=== PATIENT | female | born 1955 | race Caucasian/White ===

== ENCOUNTER 2016-12-29 12:35 | Emergency (ER) | payer MEDICAID ==
[~2016-12-29] VITALS: Ht 154.9 cm; Wt 51.1 kg
[2016-12-29 12:39] VITALS: BP 133/81
[2016-12-29] MEDS ORDERED: OXYcodone/APAP 5/325MG TABLET ONE (13:06)
[2016-12-29] MEDS ORDERED: OXYcodone/APAP 5/325MG TABLET PO ONE (13:30)
== END 2016-12-29 14:52 | disposition home or self-care (01) ==
LOC: ED 14:45
DX: S52.502A Unspecified fracture of the lower end of left radius, initial encounter for closed fracture (principal); X50.9XXA Other and unspecified overexertion or strenuous movements or postures, initial encounter; Y93.89 Activity, other specified; Y99.8 Other external cause status; Y92.830 Public park as the place of occurrence of the external cause
CPT/HCPCS: 29125

== ENCOUNTER 2017-01-03 20:16 | Emergency (ER) | payer MEDICAID ==
[~2017-01-03] VITALS: Ht 157.5 cm; Wt 51.3 kg
[2017-01-03 20:18] VITALS: BP 125/84
[2017-01-03] MEDS ORDERED: LIDOCAINE 1%, 20ML ONE (21:32)
[2017-01-03] MEDS ORDERED: LIDOCAINE 1%, 20ML INFIL ONE (22:00)
[2017-01-03] MEDS ORDERED: BACITRACIN ZINC OINT 500U/GM, 0.9 GM ONE (22:50)
[2017-01-03] MEDS ORDERED: TRAM50TA2 PO (22:55)
[2017-01-03] MEDS ORDERED: ACET500T63 PO (22:55)
[2017-01-03] MEDS ORDERED: NITR100C PO (22:55)
== END 2017-01-03 23:04 | disposition home or self-care (01) ==
LOC: ED 22:58
DX: S01.511A Laceration without foreign body of lip, initial encounter (principal); W01.0XXA Fall on same level from slipping, tripping and stumbling without subsequent striking against object, initial encounter; Y93.89 Activity, other specified; Y92.89 Other specified places as the place of occurrence of the external cause; Y99.8 Other external cause status
CPT/HCPCS: 13152; 70450; 70486; 99285; J3490

== ENCOUNTER 2017-08-22 05:52 | Emergency (ER) | payer SELFPAY ==
[~2017-08-22] VITALS: Ht 160 cm; Wt 47.7 kg
[~2017-08-22 05:52] MED LIST: ACET500T63 PO; NITR100C PO; TRAM50TA2 PO
[2017-08-22] MEDS ORDERED: LIDOCAINE 1%, 20ML ONE (07:34)
[2017-08-22] MEDS ORDERED: ACETAMINOPHEN 500 MG TABLET ONE (07:37)
[2017-08-22] MEDS ORDERED: ACETAMINOPHEN 500 MG TABLET PO ONE (08:30)
[2017-08-22 11:08] VITALS: BP 124/83
== END 2017-08-22 11:55 | disposition home or self-care (01) ==
LOC: ED 11:27
DX: S01.01XA Laceration without foreign body of scalp, initial encounter (principal); F10.20 Alcohol dependence, uncomplicated; F17.200 Nicotine dependence, unspecified, uncomplicated; I10 Essential (primary) hypertension; W18.30XA Fall on same level, unspecified, initial encounter; Y93.89 Activity, other specified; Y92.89 Other specified places as the place of occurrence of the external cause; Y99.8 Other external cause status
CPT/HCPCS: 13121; 70450; 72125; 99285

== ENCOUNTER 2017-09-01 18:06 | Emergency (ER) | payer OTHER ==
[~2017-09-01] VITALS: Ht 162.6 cm; Wt 65.0 kg
[2017-09-01] MEDS ORDERED: SODIUM CHLORIDE 0.9% 1,000ML IVBOLUS ONE ×2 (19:00→22:00)
[2017-09-01 19:05] LABS: BASOPHILS # (AUTO) 0.07 x10^3/uL (0-0.1); BASOPHILS % (AUTO) 1 % (0-1); EOSINOPHILS # (AUTO) 0.23 x10^3/uL (0-0.4); EOSINOPHILS % (AUTO) 2 % (1-7); LYMPHOCYTES # (AUTO) 3.22 x10^3/uL (1-3.4); LYMPHOCYTES % (AUTO) 23 % (22-44); MD NO; MEAN CORPUSCULAR HEMOGLOBIN 32.9 pg (27.0-34.8); MEAN CORPUSCULAR HGB CONC 32.6 g/dL (32.4-35.8); MEAN CORPUSCULAR VOLUME 100.9 fL (80-100); MEAN PLATELET VOLUME 7.1 fL (7.4-10.4); MONOCYTES # (AUTO) 0.92 x10^3/uL (0.2-0.8); MONOCYTES % (AUTO) 7 % (2-9); NEUTROPHILS # (AUTO) 9.38 x10^3/uL (1.8-6.8); NEUTROPHILS % (AUTO) 68 % (42-75); PLATELET COUNT 430 x10^3/uL (130-400); RED BLOOD COUNT 3.74 x10^6/uL (3.82-5.3); RED CELL DISTRIBUTION WIDTH 15.1 % (9.6-15.2)
[2017-09-01 19:13] LABS: ALANINE AMINOTRANSFERASE 155 U/L (12-78); ALBUMIN 3.1 g/dL (3.4-5.0); ANION GAP 8 mmol/L (5-15); CALCIUM 7.8 mg/dL (8.5-10.1); CHLORIDE 110 mmol/L (98-107); CREATININE 0.42 mg/dL (0.55-1.02)
[2017-09-01 19:17] LABS: ALKALINE PHOSPHATASE 104 U/L (45-117); BILIRUBIN,TOTAL 0.3 mg/dL (0.2-1.0); TOTAL PROTEIN 7.3 g/dL (6.4-8.2)
[2017-09-01 22:24] VITALS: BP 112/60
== END 2017-09-02 00:03 | disposition home or self-care (01) ==
LOC: ED 23:19
DX: F10.220 Alcohol dependence with intoxication, uncomplicated (principal); E86.0 Dehydration
CPT/HCPCS: 36415; 80053; 80307; 85025; 96360; 96361; 99284; J7030

== ENCOUNTER 2018-03-29 18:25 | Emergency (ER) | payer MEDICAID ==
[~2018-03-29] VITALS: Ht 157.5 cm; Wt 50.0 kg
[~2018-03-29 18:25] MED LIST changes: +ACET325T14 PO; +CEFD300C37 PO; +FOLI-17 PO; +GUAI200T3 PO; +HYDR-3240 PO; +LISI5TAB7 PO; +THIA100T67 PO
[2018-03-29 18:29] VITALS: BP 150/96
[2018-03-29] MEDS ORDERED: DIPH,PERTUSS(ACELL),TET VAC/PF 0.5 ML IM-VACC ONE ×2 (18:52→19:00)
[2018-03-29] MEDS ORDERED: LIDOCAINE-MPF 2%, 2ML ONE (18:52)
[2018-03-29] MEDS ORDERED: LIDOCAINE-MPF 1%, 5ML INFIL ONE (19:00)
[2018-03-29] MEDS ORDERED: BACITRACIN ZINC OINT 500U/GM, 0.9 GM ONE (21:01)
[2018-03-29] MEDS ORDERED: IBUPROFEN 200 MG TABLET ONE (21:11)
[2018-03-29] MEDS ORDERED: IBUPROFEN 200 MG TABLET PO ONE (21:30)
== END 2018-03-29 21:26 | disposition home or self-care (01) ==
LOC: ED 21:11
DX: S06.0X0A Concussion without loss of consciousness, initial encounter (principal); S01.112A Laceration without foreign body of left eyelid and periocular area, initial encounter; F10.10 Alcohol abuse, uncomplicated; I10 Essential (primary) hypertension; F17.200 Nicotine dependence, unspecified, uncomplicated; X58.XXXA Exposure to other specified factors, initial encounter; Y93.89 Activity, other specified; Y99.8 Other external cause status; Y92.009 Unspecified place in unspecified non-institutional (private) residence as the place of occurrence of the external cause
CPT/HCPCS: 12051; 70450; 72125; 90471; 90715

== ENCOUNTER 2018-04-08 08:37 | Emergency (ER) | payer MEDICAID ==
[~2018-04-08] VITALS: Ht 157.5 cm; Wt 51.7 kg
[2018-04-08 09:10] VITALS: BP 166/95
== END 2018-04-08 09:12 | disposition home or self-care (01) ==
LOC: ED 09:07
DX: S01.112D Laceration without foreign body of left eyelid and periocular area, subsequent encounter (principal); I10 Essential (primary) hypertension; F17.200 Nicotine dependence, unspecified, uncomplicated; X58.XXXD Exposure to other specified factors, subsequent encounter
CPT/HCPCS: 99282

== ENCOUNTER 2018-09-06 15:09 | Emergency (ER) | payer MEDICAID ==
[~2018-09-06] VITALS: Ht 157.5 cm; Wt 50.7 kg
[2018-09-06 15:44] LABS: BASOPHILS # (AUTO) 0.07 x10^3/uL (0-0.1); BASOPHILS % (AUTO) 1 % (0-1); EOSINOPHILS # (AUTO) 0.32 x10^3/uL (0-0.4); EOSINOPHILS % (AUTO) 3 % (1-7); LYMPHOCYTES # (AUTO) 2.45 x10^3/uL (1-3.4); LYMPHOCYTES % (AUTO) 24 % (22-44); MD NO; MEAN CORPUSCULAR HEMOGLOBIN 29.8 pg (27.0-34.8); MEAN CORPUSCULAR VOLUME 90.3 fL (80-100); MEAN PLATELET VOLUME 7.7 fL (7.4-10.4); MONOCYTES # (AUTO) 1.08 x10^3/uL (0.2-0.8); MONOCYTES % (AUTO) 11 % (2-9); NEUTROPHILS # (AUTO) 6.25 x10^3/uL (1.8-6.8); NEUTROPHILS % (AUTO) 62 % (42-75); PLATELET COUNT 361 x10^3/uL (130-400); RED BLOOD COUNT 4.33 x10^6/uL (3.82-5.3); RED CELL DISTRIBUTION WIDTH 14.7 % (9.6-15.2)
[2018-09-06 15:53] LABS: ANION GAP 6 mmol/L (5-15); CHLORIDE 105 mmol/L (98-107)
--- NOTE | 2018-09-06 18:52 | NUR ---
TO ROOM FROM [facility]. NAD.
[2018-09-06 19:17] VITALS: BP 153/84
[2018-09-06 19:30] LABS: MICROSCOPIC AUTO
[2018-09-06 19:32] LABS: CULTURE INDICATED? YES
[2018-09-06 19:41] LABS: RAPID INFLUENZA A Negative (Negative); RAPID INFLUENZA B Negative (Negative)
== END 2018-09-06 19:53 | disposition home or self-care (01) ==
LOC: ED 19:15
DX: J06.9 Acute upper respiratory infection, unspecified (principal); F17.200 Nicotine dependence, unspecified, uncomplicated; I10 Essential (primary) hypertension
CPT/HCPCS: 36415; 71046; 80048; 81001; 85025; 87086; 87400; 93005; 99284

== ENCOUNTER 2018-10-01 01:00 | Emergency (ER) | payer MEDICAID ==
[~2018-10-01] VITALS: Ht 154.9 cm; Wt 50.0 kg
[2018-10-01 01:58] VITALS: BP 143/104
== END 2018-10-01 02:23 | disposition home or self-care (01) ==
LOC: ED 01:21
DX: J44.1 Chronic obstructive pulmonary disease with (acute) exacerbation (principal); I10 Essential (primary) hypertension; F17.200 Nicotine dependence, unspecified, uncomplicated
CPT/HCPCS: 71046; 99283

== ENCOUNTER 2018-11-03 16:55 | Emergency (ER) | payer MEDICAID ==
[~2018-11-03] VITALS: Ht 157.5 cm; Wt 49.0 kg
[2018-11-03 16:57] VITALS: BP 154/78
[2018-11-03] MEDS ORDERED: IBUPROFEN 200 MG TABLET ONE (17:25)
[2018-11-03] MEDS ORDERED: IBUPROFEN 600 MG TABLET PO ONE (18:00)
== END 2018-11-03 18:36 | disposition home or self-care (01) ==
LOC: ED 18:15
DX: M43.16 Spondylolisthesis, lumbar region (principal); M54.16 Radiculopathy, lumbar region; M54.41 Lumbago with sciatica, right side; I10 Essential (primary) hypertension; J44.9 Chronic obstructive pulmonary disease, unspecified; Z72.9 Problem related to lifestyle, unspecified
CPT/HCPCS: 72110; 99283

== ENCOUNTER 2019-03-02 10:32 | Emergency (ER) | payer MEDICAID ==
[~2019-03-02] VITALS: Ht 157.5 cm; Wt 51.1 kg
[2019-03-02 12:44] VITALS: BP 124/78
== END 2019-03-02 13:13 | disposition home or self-care (01) ==
LOC: ED 11:05
DX: I10 Essential (primary) hypertension (principal); J44.9 Chronic obstructive pulmonary disease, unspecified; M19.90 Unspecified osteoarthritis, unspecified site
CPT/HCPCS: 36415; 71045; 80053; 83880; 84484; 85025; 93005; 99284

== ENCOUNTER 2019-07-24 10:24 | Emergency (ER) | payer MEDICARE, MEDICAID ==
[~2019-07-24] VITALS: Ht 157.5 cm; Wt 53.8 kg
[~2019-07-24 10:24] MED LIST changes: -GUAI200T3 PO; +GUAI200T37 PO
[2019-07-24 10:42] VITALS: BP 164/86
--- NOTE | 2019-07-24 10:57 | NUR ---
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
--- NOTE | 2019-07-24 11:27 | NUR ---
PT IN ROOM 16 FROM [facility]
--- NOTE | 2019-07-24 11:50 | NUR ---
PT RETURNED FROM XRAY, AMBULATED TO BATHROOM WITH STEADY GAIT
== END 2019-07-24 13:01 | disposition home or self-care (01) ==
LOC: ED 11:36
DX: J15.9 Unspecified bacterial pneumonia (principal); I10 Essential (primary) hypertension; J44.9 Chronic obstructive pulmonary disease, unspecified; F17.200 Nicotine dependence, unspecified, uncomplicated
CPT/HCPCS: 71046; 93005; 99283

== ENCOUNTER 2019-09-11 19:44 | Emergency (ER) | payer MEDICARE, MEDICAID ==
[~2019-09-11] VITALS: Ht 157.5 cm; Wt 52.0 kg
--- NOTE | 2019-09-11 19:48 | NUR ---
Pt ambulated to restroom with assistance, was persistent to be in the restroom alone. When nurse stepped outside, pt leaned forward, lost balance and hit her head on the trash can. No LOC. Small laceration on left forehead, bleeding controlled at this time. MD aware, will continue to monitor
--- NOTE | 2019-09-11 20:50 | NUR ---
pt returned from ct
[2019-09-11] MEDS ORDERED: ACETAMINOPHEN 500 MG TABLET PO ONE (22:00)
[2019-09-11] MEDS ORDERED: ACETAMINOPHEN 500 MG TABLET ONE (22:02)
[2019-09-12 00:33] VITALS: BP 110/64
--- NOTE | 2019-09-12 00:42 | NUR ---
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
== END 2019-09-12 01:49 | disposition home or self-care (01) ==
LOC: ED 09-12 00:23
DX: S00.03XA Contusion of scalp, initial encounter (principal); F10.120 Alcohol abuse with intoxication, uncomplicated; I10 Essential (primary) hypertension; J44.9 Chronic obstructive pulmonary disease, unspecified; M19.90 Unspecified osteoarthritis, unspecified site; F17.200 Nicotine dependence, unspecified, uncomplicated; W01.198A Fall on same level from slipping, tripping and stumbling with subsequent striking against other object, initial encounter; Y93.89 Activity, other specified; Y92.488 Other paved roadways as the place of occurrence of the external cause; Y99.8 Other external cause status; Y90.9 Presence of alcohol in blood, level not specified
CPT/HCPCS: 70450; 72125; 99285

== ENCOUNTER 2019-09-29 11:07 | Emergency (ER) | payer MEDICARE, MEDICAID ==
[~2019-09-29] VITALS: Ht 154.9 cm; Wt 55.0 kg
[2019-09-29 11:09] VITALS: BP 144/81
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
[2019-09-29] MEDS ORDERED: LIDOCAINE-MPF 1%, 5ML ONE (11:30)
[2019-09-29] MEDS ORDERED: LIDOCAINE-MPF 1%, 5ML INFIL ONE (11:30)
--- NOTE | 2019-09-29 14:23 | NUR ---
given meal tray read for dc
--- NOTE | 2019-09-29 14:29 | NUR ---
Patient/Caregiver given discharge instructions and they have confirmed that they understand the instructions. Patient ambulatory with steady gait.
== END 2019-09-29 14:55 | disposition home or self-care (01) ==
LOC: ED 12:02
DX: S01.511A Laceration without foreign body of lip, initial encounter (principal); F10.229 Alcohol dependence with intoxication, unspecified; J44.9 Chronic obstructive pulmonary disease, unspecified; I10 Essential (primary) hypertension; Y90.9 Presence of alcohol in blood, level not specified; W01.0XXA Fall on same level from slipping, tripping and stumbling without subsequent striking against object, initial encounter; Y93.89 Activity, other specified; Y92.89 Other specified places as the place of occurrence of the external cause; Y99.8 Other external cause status
CPT/HCPCS: 40650; 99284

== ENCOUNTER → 2020-12-26 | Outpatient (CLI) | payer MEDICARE, MEDICAID ==
[~2020-12-26] MED LIST changes: -FOLI-17 PO; +FOLI1TAB32 PO; +HYDR-2214 PO; -HYDR-3240 PO
== END | disposition home or self-care (01) ==
LOC: WOUND 09:32
PROVIDERS: ATTEND Internal Medicine
DX: T84.296A Other mechanical complication of internal fixation device of vertebrae, initial encounter (principal); S01.80XA Unspecified open wound of other part of head, initial encounter; R29.6 Repeated falls; I10 Essential (primary) hypertension; E78.5 Hyperlipidemia, unspecified; J44.9 Chronic obstructive pulmonary disease, unspecified; M19.90 Unspecified osteoarthritis, unspecified site; F17.210 Nicotine dependence, cigarettes, uncomplicated; F10.20 Alcohol dependence, uncomplicated; F32.9 Major depressive disorder, single episode, unspecified; F41.9 Anxiety disorder, unspecified; Z79.899 Other long term (current) drug therapy; Z87.01 Personal history of pneumonia (recurrent); W00.0XXA Fall on same level due to ice and snow, initial encounter; Y93.89 Activity, other specified; Y92.238 Other place in hospital as the place of occurrence of the external cause; Y99.8 Other external cause status; Y83.1 Surgical operation with implant of artificial internal device as the cause of abnormal reaction of the patient, or of later complication, without mention of misadventure at the time of the procedure
CPT/HCPCS: 97597; G0463

== ENCOUNTER → 2021-01-02 | Outpatient (CLI) | payer MEDICARE, MEDICAID | END | disposition home or self-care (01) | LOC: WOUND 10:37 | PROVIDERS: ATTEND Internal Medicine | DX: T84.296D Other mechanical complication of internal fixation device of vertebrae, subsequent encounter (principal); S01.80XD Unspecified open wound of other part of head, subsequent encounter; R29.6 Repeated falls; I10 Essential (primary) hypertension; E78.5 Hyperlipidemia, unspecified; M19.90 Unspecified osteoarthritis, unspecified site; J44.9 Chronic obstructive pulmonary disease, unspecified; F32.9 Major depressive disorder, single episode, unspecified; F17.210 Nicotine dependence, cigarettes, uncomplicated; F10.20 Alcohol dependence, uncomplicated; Z87.01 Personal history of pneumonia (recurrent); Y83.1 Surgical operation with implant of artificial internal device as the cause of abnormal reaction of the patient, or of later complication, without mention of misadventure at the time of the procedure; X58.XXXD Exposure to other specified factors, subsequent encounter | CPT/HCPCS: 97597 ==

== ENCOUNTER 2021-01-09 10:00 | Outpatient (CLI) | payer MEDICARE, MEDICAID | END 2021-01-09 23:59 | disposition home or self-care (01) | LOC: WOUND 10:00 | PROVIDERS: ATTEND Internal Medicine | DX: T84.296D Other mechanical complication of internal fixation device of vertebrae, subsequent encounter (principal); S01.80XD Unspecified open wound of other part of head, subsequent encounter; S01.00XD Unspecified open wound of scalp, subsequent encounter; R29.6 Repeated falls; I10 Essential (primary) hypertension; E78.5 Hyperlipidemia, unspecified; M19.90 Unspecified osteoarthritis, unspecified site; J44.9 Chronic obstructive pulmonary disease, unspecified; F32.9 Major depressive disorder, single episode, unspecified; F10.20 Alcohol dependence, uncomplicated; F41.9 Anxiety disorder, unspecified; F17.210 Nicotine dependence, cigarettes, uncomplicated; Z87.01 Personal history of pneumonia (recurrent); X58.XXXD Exposure to other specified factors, subsequent encounter; Y83.1 Surgical operation with implant of artificial internal device as the cause of abnormal reaction of the patient, or of later complication, without mention of misadventure at the time of the procedure | CPT/HCPCS: 97597 ==

== ENCOUNTER 2021-01-23 09:56 | Outpatient (CLI) | payer MEDICARE, MEDICAID | END 2021-01-23 23:59 | disposition home or self-care (01) | LOC: WOUND 09:56 | PROVIDERS: ATTEND Internal Medicine | DX: S01.00XD Unspecified open wound of scalp, subsequent encounter (principal); S01.80XD Unspecified open wound of other part of head, subsequent encounter; I10 Essential (primary) hypertension; E78.5 Hyperlipidemia, unspecified; M19.90 Unspecified osteoarthritis, unspecified site; J44.9 Chronic obstructive pulmonary disease, unspecified; F41.9 Anxiety disorder, unspecified; F32.9 Major depressive disorder, single episode, unspecified; F17.210 Nicotine dependence, cigarettes, uncomplicated; F10.20 Alcohol dependence, uncomplicated; R29.6 Repeated falls; Z87.01 Personal history of pneumonia (recurrent); X58.XXXD Exposure to other specified factors, subsequent encounter | CPT/HCPCS: 97597 ==

== ENCOUNTER 2021-02-06 10:04 | Outpatient (CLI) | payer MEDICARE, MEDICAID | END 2021-02-06 23:59 | disposition home or self-care (01) | LOC: WOUND 10:04 | PROVIDERS: ATTEND Internal Medicine | DX: S01.00XD Unspecified open wound of scalp, subsequent encounter (principal); S01.80XD Unspecified open wound of other part of head, subsequent encounter; I10 Essential (primary) hypertension; E78.5 Hyperlipidemia, unspecified; M19.90 Unspecified osteoarthritis, unspecified site; J44.9 Chronic obstructive pulmonary disease, unspecified; F41.9 Anxiety disorder, unspecified; F32.9 Major depressive disorder, single episode, unspecified; F17.210 Nicotine dependence, cigarettes, uncomplicated; F10.20 Alcohol dependence, uncomplicated; R29.6 Repeated falls; Z87.01 Personal history of pneumonia (recurrent); X58.XXXD Exposure to other specified factors, subsequent encounter | CPT/HCPCS: 97597 ==

== ENCOUNTER 2021-03-05 20:49 | Emergency (ER) | payer MEDICARE, MEDICAID ==
[~2021-03-05] VITALS: Ht 160 cm; Wt 46.8 kg
[2021-03-05 21:06] VITALS: BP 165/101
== END 2021-03-05 23:48 | disposition home or self-care (01) ==
LOC: ED 21:19
DX: F10.220 Alcohol dependence with intoxication, uncomplicated (principal); Z72.9 Problem related to lifestyle, unspecified; M54.2 Cervicalgia; F17.210 Nicotine dependence, cigarettes, uncomplicated; J44.9 Chronic obstructive pulmonary disease, unspecified; M19.90 Unspecified osteoarthritis, unspecified site; I10 Essential (primary) hypertension; Y90.0 Blood alcohol level of less than 20 mg/100 ml
CPT/HCPCS: 99283; 99406